=== PATIENT | male | born 1995 | race Caucasian/White ===

== ENCOUNTER 2017-01-13 13:42 | Emergency (ER) | payer OTHER ==
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
== END 2017-01-13 15:04 | disposition disaster alternative care site (69) ==
LOC: GACC 13:42
DX: S09.90XA Unspecified injury of head, initial encounter (principal); S60.221A Contusion of right hand, initial encounter; S80.01XA Contusion of right knee, initial encounter; V49.9XXA Car occupant (driver) (passenger) injured in unspecified traffic accident, initial encounter

== ENCOUNTER → 2017-01-13 | Emergency (ER) | payer OTHER | END | disposition disaster alternative care site (69) | LOC: GAMB 05:39 | DX: R53.1 Weakness (principal); V49.9XXA Car occupant (driver) (passenger) injured in unspecified traffic accident, initial encounter ==